=== PATIENT | female | born 1965 | race Caucasian/White ===

== ENCOUNTER 2019-04-10 13:02 | Day surgery (SDC) | payer OTHER, SELFPAY ==
[2019-03-23 14:53] VITALS: BMI 26.9
[2019-04-10] VITALS (10 sets, daily range): BP systolic 99–111; BP diastolic 64–77; PULSE 53–68; RESP 7–15; TEMP 36.1–37; O2SAT 94–100; BMI 26.6
--- NOTE | 2019-04-10 | PATH_ITS ---
[facility] Accession Number: [id number] . 01 Material submitted: . PART A: endocervix - ENDOCERVICAL CURETTINGS PART B: endometrium - ENDOMETRIAL CURETTINGS . 02 Diagnosis: A. Endocervical Curettings: Multiple fragments of endocervical adenocarcinoma, endometrioid type, FIGO grade 1 with, prominent tumor necrosis. Scattered fragments of endocervical epithelium present. . B. Endometrial Curettings: Endometrial adenocarcinoma, endometrioid type, FIGO grade 1, with extensive tumor necrosis. Tissue fragments of endocervix are present which appear to be invaded by the endometrial adenocarcinoma. BFI04/12/2019 . 02 Comment: The results of this evaluation are telephoned to the office of Dr. Daniel Awan at 10:25 a.m. on 04/12/19. . As part of routine coding quality analyst, Dr. Srinivasa Gamboa has also reviewed this case and agrees with the above interpretation. . . 02 Electronically signed: . Colby Hutchison MD, Pathologist NPI- [id number] . 01 Gross description: . Part A: ENDOCERVICAL CURETTINGS: Received in formalin are minute fragments of mucoid and hemorrhagic material measuring 1.0 x 1.0 x 0.2 cm in aggregate. Submitted in toto in 1 cassette. Part B: ENDOMETRIAL CURETTINGS: Received in formalin are minute fragments of mucoid and hemorrhagic material measuring 4.0 x 4.0 x 0.3 cm in aggregate. Submitted in toto in 4 cassettes. /DM /[facility] . 02 Microscopic: . Sections from part A are are of endocervical curettings and part B endometrial curettings. Both specimens contain endometrial adenocarcinoma which is of the endometrioid type. The tumor appears to be low-grade (FIGO grade 1) but the tumor is extensively necrotic. There is some endocervical tissue present in part A, but most of the material is endometrial adenocarcinoma. In part B there are fragments of endocervical tissue which appear to be invaded by the endometrial adenocarcinoma. The tumor present in both specimens shows extensive tumor necrosis. . 02 Pathologist provided ICD-10: C54.1 . 02 CPT . 813951, [id number] Performed at: 01 [facility] [address] [id number] MD Rome Watson MD Phone: [phone] Performed at: [facility] [place] [address] [place] [id number] MD Sujey Gonzalez MD Phone: [phone]
[2019-04-10] MEDS: LACTATED RINGERS 1,000 ML 42 ML IV (13:40)
--- NOTE | 2019-04-10 13:59 | PM.PREOP ---
Pre-operative Note Interval Note History & Physical reviewed/Exam performed by Physician: Yes Changes to H&P: No ASA Class (for procedural sedation): II
[2019-04-10] MEDS: CEFOTETAN 2 GM/50 ML PIGGYBACK IV (14:13)
--- NOTE | 2019-04-10 14:55 | PM.GYNOP.1 ---
Operative Date/Time/Diagnoses Date of procedure: 04/10/19 Time of procedure: 14:55 Pre-op diagnosis: Postmenopausal bleeding Thickened endometrial stripe Post-op diagnosis: same Procedure: Procedures Operation Date: 04/10/19 13:30 Actual Procedures Side Surgeon p Hysteroscopy D&C Daniel Awan MD Indications: Postmenopausal bleeding Endometrial stripe thickened Surgeon: Daniel Awan Anesthesia Type: General Operative Notes Findings: Normal uterus with thickened endometrial stripe Closure Type: not applicable Specimen(s): endometrial curettings Blood products transfused: none Procedure in detail: The patient was placed supine upon the operating table and anesthetized. She was then placed in the dorsal lithotomy position and examined under anesthesia. Under anesthesia she was felt to have a mildly enlarged uterus anterior and no adnexal masses. The patient was then draped and prepared in the usual fashion. A posterior weighted retractor was set in place. The anterior lip of the cervix was grasped with a toothed tenaculum. Uterine cavity sounded to 8 cm. Uterine cervix was dilated to Hegar 11. The hysteroscope was introduced in the cavity filled with fluid. There appeared to be large amount of endometrial tissue but no evidence of polyp or leiomyomata. The tubal orifices could be seen. Curettage of the endocervix was then performed. A vigorous curettage of the endometrium was then performed. Post examination showed no residual tissue. The patient tolerated the procedure well and was taken to the recovery room in satisfactory condition. Complications: none Post-operative Condition: stable Disposition: PACU Plan for aftercare: Home
--- NOTE | 2019-04-10 14:59 | PM.DS.1 ---
History of Present Illness Date Patient Seen: 04/10/19 Time Patient Seen: 14:59 Chief complaint: [id number] Narrative: Patient presented with a history of postmenopausal bleeding. Ultrasound of the uterus showed 8th 40 mm endometrial stripe. Patient underwent hysteroscopy and D&C successfully without difficulty. Discharge Providers Discharge Date: 04/10/19 Primary care physician: Janell Godfrey MD Discharge provider: Daniel Awan MD Summary Discharge Diagnosis: Postmenopausal bleeding Thickened endometrium Hospital Course: Patient was admitted for elective hysteroscopy and D&C. These were completed without difficulty. Status at Discharge Cognitive/behavioral status at discharge: oriented Functional status at discharge: independent ambulation Overall status at discharge: patient is progressing back to baseline Time Spent with Patient Less than 30 minutes Exam Vital Signs (past 8 hours): - 04/10/19 13:50 04/10/19 14:55 Temperature 97.7 F 97.0 F L Pulse Rate 59 L 53 L Respiratory Rate 12 11 L Blood Pressure 102/70 104/74 Pulse Oximetry 100 100 Oxygen Delivery Method Room Air Narrative Exam Narrative: Minimal vaginal bleeding Discharge Plan Discharge Plan Patient Disposition: Home Discharge Med Rec/Prescriptions Prescriptions: New hydrocodone-acetaminophen 5-325 mg Tablet 1 tab PO Q30MIN PRN (Reason: Mild or moderate pain) Qty: 10 RF: 0 Continued naratriptan 2.5 mg tablet 2.5 mg PO ONCE RF: 0 Follow up/Referrals: Janell Godfrey MD [Primary Care Provider] - Discharge Orders: Discharge (Order); Ordered 04/10/19 Ordered By: Daniel Awan Provider Discharge Instructions Diet: Diet as Tolerated Activity: Routine activity Skin/Wound/Dressing Care Report to your healthcare provider any signs of infection, such as:: chills, fever, increased pain, unusual drainage and unusual redness Visit Report/Discharge Packet Instructions: DI for Hysteroscopy Stand Alone Forms: Surgery Discharge Discharge Data Primary Care Provider: Janell Godfrey Attending Provider: Daniel Awan
[2019-04-10] MEDS: KETOROLAC 30 MG/ML VIAL IV (15:19)
[2019-04-10] MEDS: fentaNYL 100 MCG/2 ML INJ 50 MCG IV (15:36)
[2019-04-10] MEDS: HYDROCODONE/ACET 5/325 TABLET 1 TAB PO (15:45)
--- NOTE | 2019-04-10 16:36 | SUR.PHASEII ---
1620 late entry Stable, pleasant and cooperative, comfortable/laughing. states that she is tolerating pain level well. Scant vag flow, 2 pads given for ferry ride. Is not light-headed, stable on feet. Resp unlabored, skin warm and dry.
== END 2019-04-10 16:34 | disposition home or self-care (01) ==
PROVIDERS: PCP Specialist
PROC: 0UDB8ZZ Extraction of Endometrium, Via Natural or Artificial Opening Endoscopic (ICD-10-PCS; CPT 58558; principal; 2019-04-10 13:30)
DX: C54.1 Malignant neoplasm of endometrium (principal); C53.0 Malignant neoplasm of endocervix; N95.0 Postmenopausal bleeding; R93.89 Abnormal findings on diagnostic imaging of other specified body structures; Z87.891 Personal history of nicotine dependence
CPT/HCPCS: 58558; J1100; J1885; J2405; J2704; J3010

== ENCOUNTER → 2019-04-20 10:17 | Outpatient (CLI) | payer OTHER, SELFPAY ==
--- NOTE | 2019-04-20 10:46 | DI.CT.S_ITS ---
PROCEDURE: CT CHEST ABD PEL W CON INDICATIONS: New Dx endocervical endometrial adenocarcinoma TECHNIQUE: After the administration of intravenous contrast, 5 mm thick sections acquired from the lung apices to the symphysis. 5 mm coronal and sagittal reformats were performed, with additional 7 mm MIP reformats through the lungs. For radiation dose reduction, the following was used: automated exposure control, adjustment of mA and/or kV according to patient size. COMPARISON: None available. FINDINGS: Image quality: Excellent. CHEST: Lungs and pleura: No acute airspace opacities. Minimal atelectasis. No pleural effusions or pneumothorax. Central and peripheral airways appear patent and normal in caliber. Mediastinum: Heart size is normal. Mild coronary artery calcifications in the LAD. No pericardial effusion. No mediastinal or hilar adenopathy by size criteria. Thoracic aorta and central pulmonary arteries are normal in size. No central pulmonary embolism. Esophagus is normal in caliber. No hiatal hernia. Chest wall: No axillary or supraclavicular adenopathy by size criteria. Heterogeneous right thyroid nodule measuring 1.6 cm, (3/3). ABDOMEN: Solid organs: Liver is normal in size and enhancement. Gallbladder is unremarkable. Biliary system is non dilated. Pancreas enhances normally. Spleen is normal in size and enhancement. No adrenal nodules. Kidneys demonstrate normal size and enhancement, without hydronephrosis. Peritoneum and bowel: Bowel loops demonstrate normal wall thickness and caliber. The appendix is normal. No free fluid or air. Nodes and vessels: Small left common iliac node measuring 0.8 x 0.7 cm, (3/85). Aorta and inferior vena cava are normal in size. Miscellaneous: No ventral hernias. PELVIS: Genitourinary: Bladder is unremarkable. Cervical mass measuring approximately 2.9 x 2.4 x 2.3 cm, (6/47). No obvious parametrial invasion. Mildly prominent pelvic veins. Small left pelvic sidewall node measuring 1.3 x 0.9 cm, (5/40). The uterus is enlarged with a globular confirmation. There is probable fluid and debris in the endometrial canal. The ovaries appear within normal limits. No free fluid. Miscellaneous: No inguinal hernias or adenopathy. Bones: No suspicious bony lesions. Moderate degenerative change at L5-S1. No vertebral body compression fractures. IMPRESSION: 1. Endocervical mass measuring approximately 2.9 cm most consistent with adenocarcinoma as described in the history. Dedicated pelvic MRI may be helpful for staging the parametrium. 2. Globular uterus with probable debris and fluid in the endometrial canal. Mass extension into the uterus cannot be excluded. 3. Small indeterminate left pelvic sidewall and left common iliac nodes. No free fluid in the pelvis. 4. No solid parenchymal organ or pulmonary metastasis. Dictated by: Lakhwinder Amezcua M.D. on 04/20/2019 at 10:46 Approved by: Lakhwinder Amezcua M.D. on 04/20/2019 at 11:06
== END ==
PROVIDERS: PCP Specialist; Referring Provider Obstetrics & Gynecology
DX: C53.0 Malignant neoplasm of endocervix (principal); C54.1 Malignant neoplasm of endometrium
CPT/HCPCS: 71260; 74177; Q9967